=== PATIENT | male | born 1995 | race African-American/Black ===

== ENCOUNTER 2019-09-04 18:22 | Emergency (ER) | payer SELFPAY ==
--- NOTE | 2019-09-04 19:50 | RAD ---
Exam: XR Ankle Lt 3 View STANDARD HISTORY: Left ankle injury. COMPARISON: None FINDINGS: The ankle mortise is congruent. No acute fracture, dislocation, or other acute osseous abnormality is identified. IMPRESSION: No acute osseous abnormality is identified.
== END 2019-09-04 20:15 | disposition home or self-care (01) ==
LOC: NAV ERS 18:22
DX: S93.402A Sprain of unspecified ligament of left ankle, initial encounter (principal); F17.210 Nicotine dependence, cigarettes, uncomplicated; X50.1XXA Overexertion from prolonged static or awkward postures, initial encounter